=== PATIENT | male | born 1985 | race Caucasian/White ===

== ENCOUNTER 2016-08-04 00:47 | Observation (INO) | payer OTHER ==
[2016-08-04 01:01] VITALS: BMI 32.5
[2016-08-04 01:14] VITALS: RESP 18; TEMP 97.8
--- NOTE | 2016-08-04 01:21 | ED PDOC ---
Arrival/HPI <Aleksey Fernandez - Last Filed: 08/04/16 03:49> - General Historian: Patient - History of Present Illness Time/Duration: 1-3 hours Symptom Onset: Sudden Symptom Course: Intermittent Context: Home <Amanda Paige - Last Filed: 08/04/16 07:15> - General Time Seen by Provider: 08/04/16 00:50 - History of Present Illness Narrative History of Present Illness (Text): 08/04/16 01:21 31 yo male with no significant PMH presented to ED with chest pain. Patient states the pain started few hours before presentations to ED. He describes the pain as sharp, left sided and intermittent. He denies radiation of pain. He reports taking a diet pill and sleeping pill earlier in the evening. He states thought it was due to the medication so he made himself vomit by drinking alot of water. He also reports mild SOB. He denies fever, chills, abd pain, n/d/c. PMD: Dr. Foster (Amanda Paige) Past Medical History - Provider Review Nursing Documentation Reviewed: Yes - Infectious Disease Hx of Infectious Diseases: None - Tetanus Immunization Tetanus Immunization: Up to Date - Reproductive Currently : No Currently Lactating: No - Cardiac Hx Cardiac Disorders: No - Pulmonary Hx Asthma: Yes - Neurological Hx Neurological Disorder: No - HEENT Hx HEENT Disorder: No - Renal Hx Renal Disorder: No - Endocrine/Metabolic Hx Endocrine Disorders: No - Hematological/Oncological Hx Blood Disorders: No - Integumentary Hx Dermatological Disorder: No - Musculoskeletal/Rheumatological Hx Musculoskeletal Disorders: No - Gastrointestinal Hx Gastrointestinal Disorders: No - Genitourinary/Gynecological Hx Genitourinary Disorders: No - Psychiatric Hx Psychophysiologic Disorder: No Hx Substance Use: No Other/Comment: ADHD - Past Surgical History Past Surgical History: No Previous - Anesthesia Hx Anesthesia: No Hx Anesthesia Reactions: No Hx Malignant Hyperthermia: No - Suicidal Assessment Feels Threatened In Home Enviroment: No <Amanda Paige - Last Filed: 08/04/16 07:15> Family/Social History - Physician Review Nursing Documentation Reviewed: Yes Family/Social History: CAD/TX (father) Smoking Status: Heavy Smoker > 10 Cigarettes Daily Hx Alcohol Use: No Hx Substance Use: No Hx Substance Use Treatment: No <Amanda Paige - Last Filed: 08/04/16 07:15> Allergies/Home Meds <Aleksey Fernandez - Last Filed: 08/04/16 03:49> <Amanda Paige - Last Filed: 08/04/16 07:15> Allergies/Adverse Reactions: Allergies FISH Allergy (Verified 10/14/15 05:12) DIARRHEA Review of Systems - Review of Systems Constitutional: Normal. absent: Fatigue, Fevers Eyes: Normal. absent: Vision Changes ENT: Normal. absent: Sore Throat, Rhinorrhea, Sinus Congestion Respiratory: SOB. absent: Cough, Wheezing Cardiovascular: Chest Pain. absent: Edema, Calf Pain, Syncope Gastrointestinal: Normal. absent: Abdominal Pain, Constipation, Diarrhea, Nausea Genitourinary Male: Normal. absent: Dysuria, Frequency, Hematuria Musculoskeletal: Normal. absent: Arthralgias, Myalgias Skin: Normal. absent: Rash, Pruritis, Laceration, Ulcer Neurological: Normal. absent: Headache, Dizziness Endocrine: Normal. absent: Diaphoresis Hemo/Lymphatic: Normal. absent: Easy Bleeding, Easy Bruising Psychiatric: Normal <Amanda aPige - Last Filed: 08/04/16 07:15> Physical Exam - Systems Exam Head: Present: Atraumatic, Normocephalic Pupils: Present: PERRL. No: Non-Reactive Extroacular Muscles: Present: EOMI Conjunctiva: Present: Normal Mouth: Present: Moist Mucous Membranes Neck: Present: Normal Range of Motion Respiratory/Chest: Present: Clear to Auscultation, Good Air Exchange. No: Respiratory Distress, Accessory Muscle Use, Wheezes, Rales, Rhonchi, Tachypneic Cardiovascular: Present: Regular Rate and Rhythm, Normal S1, S2. No: Murmurs, Tachycardic, Bradycardic Abdomen: Present: Normal Bowel Sounds. No: Tenderness, Distention, Peritoneal Signs Back: Present: Normal Inspection Upper Extremity: Present: Normal Inspection, NORMAL PULSES. No: Cyanosis, Edema , Tenderness, Swelling Lower Extremity: Present: Normal Inspection. No: Edema, CALF TENDERNESS Neurological: Present: GCS=15, CN II-XII Intact, Speech Normal Skin: Present: Warm, Dry, Normal Color. No: Rashes, Diaphoretic, Hot, Cold, Pale Psychiatric: Present: Alert, Oriented x 3, Normal Insight, Normal Concentration <RoyalAmanda - Last Filed: 08/04/16 07:15> Vital Signs Temp Pulse Resp BP Pulse Ox 08/04/16 00:47 97.8 F 74 18 105/72 99 Medical Decision Making <Aleksey Fernandez - Last Filed: 08/04/16 03:49> <Amanda Paige - Last Filed: 08/04/16 07:15> ED Course and Treatment: Patient seen with resident. Came up with treatment and disposition plan with resident. pt's HEART score low. 2 sets of cardiac enzymes and an EKG ordered Patient informed that our initial evaluation has not shown evidence of a heart attack. Patient verbalized understanding that even if these tests are normal, symptoms may still be a warning sign of a future heart attack and it is very important for patient to arrange outpatient cardiology follow up 08/04/16 03:43 The patient refuses further observation, and wishes to leave the Emergency Department against our medical advice. Patient was told that further observation and workup is necessary and a full explanation of the reasons why was given, and understood by patient. The risks of leaving were explained and include worsening of condition, and permanent disability and from an undiagnosed or untreated condition. The patient accepts these risks, and is in my judgment is competent and capable of understanding the clinical situation and my explanation of the risks of leaving. Patient was given the opportunity to ask questions and change mind. 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 (Aleksey Fernandez) 08/04/16 01:30 impression: 31 yo male with no significant PMH presents to ED with chest pain Differential diagnoses includes but not limited to: - acs plan: - EKG - Cxr - cardiac iso - cbc, bmp progress: - EKG: rate 77 bpm, rhythm: NSR, no ST changes. Will admitted to emergency department observation and repeat trops in 3hours. 08/04/16 03:40 - Patient states that he is feeling better. He wants to leave AMA. He was did not wish to stay for ED observations and further work up. He was explained the benefits of further work up and risk of leaving. He understood these risk and benefits and decided to leave AMA. (Amanda Paige) - EKG Interpretation EKG Interpretation (Text): 08/04/16 01:33 EKG: Ordered, reviewed, and independently interpreted the EKG. Rate : 77BPM Rhythm : NSR Interpretation : No ST-segment elevations or depressions (Amanda Paige) ED OBSERVATION Date of observation admission: 08/04/16 Time of observation admission: :15 <Aleksey Fernandez - Last Filed: 08/04/16 03:49> <Amanda Paige - Last Filed: 08/04/16 07:15> - Observation admission statement Patient is being placed in observation because:: chest pain (Aleksey Fernandez) - Goals of Observation Goals of observation are:: repeat troponins (Aleksey Fernandez) Disposition/Present on Arrival - Disposition Have Diagnosis and Disposition been Completed?: Yes <Aleksey Fernandez - Last Filed: 08/04/16 03:49> - Present on Arrival Any Indicators Present on Arrival: No History of DVT/PE: No History of Uncontrolled Diabetes: No Urinary Catheter: No History of Decub. Ulcer: No History Surgical Site Infection Following: None - Disposition Have Diagnosis and Disposition been Completed?: Yes Disposition Time: :15 Patient Plan: Observation <Amanda Paige - Last Filed: 08/04/16 07:15> - Disposition Diagnosis: Chest pain Disposition: AGAINST MEDICAL ADVICE Patient Problems: Current Active Problems Problem Status Onset Chest pain Acute Condition: STABLE
[2016-08-04 02:03] LABS: HEMATOCRIT 44.3 % (42.0-52.0); MEAN CELL VOLUME 80.1 fL (80.0-105.0); MEAN CORPUSCULAR HEMOGLOBIN 28.2 pg (25.0-35.0); MEAN CORPUSCULAR HGB CONC 35.2 g/dl (31.0-37.0); MEAN PLATELET VOLUME 9.3 fl (7.0-11.0); RED CELL DISTRIBUTION WIDTH 12.5 % (11.5-14.5); WHITE BLOOD COUNT 6.4 10^3/ul (4.5-11.0)
[2016-08-04 02:11] LABS: INR 1.01 (0.93-1.08); PARTIAL THROMBOPLASTIN TIME 29.2 Seconds (23.7-30.8)
[2016-08-04 02:12] LABS: BLOOD UREA NITROGEN 10 mg/dL (7-21); CALCIUM 9.5 mg/dL (8.4-10.5); CARBON DIOXIDE 27 mmol/L (21-33); CHLORIDE 101 mmol/L (98-107); GFR AFRICAN-AMERICAN > 60; GLUCOSE,RANDOM 126 mg/dL (70-110); POTASSIUM 3.5 mmol/L (3.6-5.0); SODIUM 139 mmol/L (132-148)
[2016-08-04 02:34] LABS: TROPONIN I < 0.01 ng/mL
[2016-08-04 03:47] VITALS: BP 112/74; PULSE 78; O2SAT 97
--- NOTE | 2016-08-04 10:17 | RAD ---
HISTORY: chest pain COMPARISON: 10/14/2015 FINDINGS: LUNGS: No active pulmonary disease. PLEURA: No significant pleural effusion identified, no pneumothorax apparent. CARDIOVASCULAR: Normal. OSSEOUS STRUCTURES: No significant abnormalities. VISUALIZED UPPER ABDOMEN: Normal. OTHER FINDINGS: None. IMPRESSION: No active disease.
--- NOTE | 2016-08-04 18:07 | CARD ---
APPROVED REPORT EKG Measurement Heart [id number] <Conclusion> Normal sinus rhythm Normal ECG
== END 2016-08-04 03:42 | disposition left against medical advice (07) ==
LOC: ED 00:47 → EROBSV 01:15
PROVIDERS: ADMIT Emergency Medicine; ATTEND Emergency Medicine
DX: R07.9 Chest pain, unspecified (principal)
CPT/HCPCS: 71010; 80048; 82550; 83615; 84484; 85027; 85610; 85730; 93005; 99284; G0378